=== PATIENT | female | born 1995 ===

== ENCOUNTER 2016-06-18 12:47 | Emergency (ER) | payer OTHER ==
[2016-06-18 12:47] VITALS: BMI 25.0
[2016-06-18 13:36] VITALS: RESP 18; O2SAT 100
[2016-06-18 14:19] LABS: RBC URINE 2 /hpf (0-3); URINE BACTERIA RARE (<OCC); URINE BILIRUBIN NEGATIVE (NEGATIVE); URINE BLOOD 2+ (NEGATIVE); URINE COLOR Yellow (YELLOW); URINE GLUCOSE (UA) NORMAL (Normal); URINE KETONE NEGATIVE (NEGATIVE); URINE LEUKOCYTE ESTERASE NEG Leu/uL (Negative); URINE PROTEIN NEGATIVE (NEGATIVE); URINE UROBILINOGEN NORMAL mg/dL (0.2-1.0); WBC URINE 5 /hpf (0-5)
--- NOTE | 2016-06-18 15:04 | C.PDOC ---
History Of Present Illness 21 year old female, with a past medical history of dermoid cysts, s/p dermoid cyst removal 6 yrs ago to Right, presents to the emergency room for the evaluation of mild intermittent bilateral groin pain associated with vaginal bleeding since yesterday. Patient admits to having a menstrual period 1 week ago. Pt admits, similar sx in past. Was seen here in ED on 05/2016 due to same complaint , had US done. Pt admits, " have no SHOTBLAST OPERATOR to FU with now". Patient otherwise denies fever, chills, abdominal pain, nausea, vomiting, urinary symptoms, or any other complaints. Ambulate to ED for evaluation, not in any apparent distress. Time Seen by Provider: 06/18/16 13:54 Chief Complaint (Nursing): Female Genitourinary History Per: Patient History/Exam Limitations: no limitations Onset/Duration Of Symptoms: Other (1 week) Current Symptoms Are (Timing): Still Present Severity: Mild Quality Of Discomfort: "Pain" Associated Symptoms: denies: Fever, Chills, Nausea, Vomiting, Urinary Symptoms Alleviating Factors: None Recent travel outside of the [place]: No Abnormal Vaginal Bleeding: Yes Last Menstral Period: 06/11/16 Past Medical History Reviewed: Historical Data, Nursing Documentation, Vital Signs Vital Signs: Last Vital Signs Temp 98.0 F 06/18/16 13:25 Pulse 76 06/18/16 13:25 Resp 18 06/18/16 13:25 BP 112/70 06/18/16 13:25 Pulse Ox 100 06/18/16 15:08 - Medical History PMH: Fractures (BOTH LEGS) Denies: Depression, Chronic Kidney Disease - [facility] Procedures APPLICATION OF SPLINT (08/06/11) Family History: States: Unknown Family Hx - Social History Hx Tobacco Use: No Hx Alcohol Use: Yes Hx Substance Use: No - Immunization History Hx Tetanus Toxoid Vaccination: No Hx Influenza Vaccination: No Hx Pneumococcal Vaccination: No Review Of Systems Except As Marked, All Systems Reviewed And Found Negative. Constitutional: Negative for: Fever, Chills Cardiovascular: Negative for: Chest Pain Respiratory: Negative for: Cough, Shortness of Breath, Wheezing Gastrointestinal: Negative for: Nausea, Vomiting, Abdominal Pain, Diarrhea Genitourinary: Positive for: Vaginal Bleeding, Other (Bilateral groin pain). Negative for: Dysuria, Frequency, Incontinence, Hematuria Musculoskeletal: Negative for: Neck Pain Physical Exam - Physical Exam Appears: Well, Non-toxic Skin: Normal Color, Warm, Dry, No Rash, No Ecchymosis Head: Atraumatic, Normacephalic Eye(s): bilateral: Normal Inspection Ear(s): Bilateral: Normal Nose: Normal, No Epistaxis, No Tenderness Oral Mucosa: Moist Tongue: Normal Appearing, No Swelling Lips: Normal Appearing, No Swelling Throat: Normal, No Erythema, No Exudate Neck: Normal ROM, No Midline Cervical Tenderness, No Paracervical Tenderness, No Step Off Deformity, Supple Chest: Symmetrical, No Deformity, No Tenderness Cardiovascular: Rhythm Regular Respiratory: Normal Breath Sounds, No Rales, No Rhonchi, No Wheezing Gastrointestinal/Abdominal: Normal Exam, Soft, No Tenderness, No Distention, No Guarding, No Rebound Back: Normal Inspection, No CVA Tenderness, No Vertebral Tenderness Extremity: Normal ROM, No Pedal Edema Neurological/Psych: Oriented x3, Normal Speech, Normal Motor ED Course And Treatment O2 Sat by Pulse Oximetry: 100 Pulse Ox Interpretation: Normal Progress Note: On re-evaluation, pt is afebrile, hemodynamicaly stable. non- toxic. Tolerate po well in ED. ABd: benign. back: (-) CVA tenderness. Transvaginal US review and appears similar to previous study from 05/2016, stable dermoid cyst, No acute findings. results review and dicussed with pt. Pt advised and ref. to f/u with SHOTBLAST OPERATOR in 2-3 days for re-eval. return to Ed if any worsening or new changes. Disposition Counseled Patient/Family Regarding: Studies Performed, Diagnosis, Need For Followup - Disposition [facility] Disposition: HOME/ ROUTINE Disposition Time: 16:05 Condition: STABLE Additional Instructions: FOLLOW UP WITH SHOTBLAST OPERATOR IN 2-3 DAYS FOR RE-EVALUATION. RETURN TO ED IF ANY WORSENING OR NEW CHANGES. Instructions: Ovarian Cyst (ED), Menstruation (ED) - Clinical Impression Clinical Impression: Dermoid cyst, Irregular menstrual cycle - Scribe Statement The provider has reviewed the documentation as recorded by the Scribe Baltazar Szymanski All medical record entries made by the Scribe were at my direction and personally dictated by me. I have reviewed the chart and agree that the record accurately reflects my personal performance of the history, physical exam, medical decision making, and the department course for this patient. I have also personally directed, reviewed, and agree with the discharge instructions and disposition.
--- NOTE | 2016-06-18 16:33 | US ---
HISTORY: B/L pain, hx of dermoid cyst COMPARISON: 05/10/2016 and 12/27/2015. TECHNIQUE: Transabdominal and transvaginal pelvic ultrasound was performed. FINDINGS: UTERUS: Measures 8.0 x 4.0 x 4.9 cm. The uterus is anteverted, normal in size and there is normal myometrial echotexture. No fibroid or other mass lesion seen. ENDOMETRIUM: Measures 5 mm in diameter. Unremarkable. CERVIX: No cervical abnormality identified. RIGHT OVARY: Measures 2.5 x 1.0 x 2.9 cm. No solid mass. Normal flow. Again seen is 1.4 x 1.2 x 1.5 cm dermoid. LEFT OVARY: Measures 3.6 x 2.4 x 3.5 cm. No solid mass. Normal flow. There is redemonstration of a large 5.9 x 4.2 x 5.1 cm dermoid without significant interval change in size given differences in slice selection. FREE FLUID: No significant free fluid noted. OTHER FINDINGS: None. IMPRESSION: 1. Redemonstration of large known left ovarian dermoid. No evidence of torsion. 2. No change in smaller right ovarian dermoid. No evidence of torsion.
[2016-06-18 16:46] VITALS: BP 113/70; PULSE 61; TEMP 98.7
== END 2016-06-18 16:46 | disposition home or self-care (01) ==
LOC: C.ER 12:47
DX: D27.1 Benign neoplasm of left ovary (principal); N92.6 Irregular menstruation, unspecified